=== PATIENT | male | born 1940 | race Caucasian/White ===

== ENCOUNTER → 2017-02-17 | Outpatient (REF) | payer MEDICARE, BC, OTHER | LOC: M LAB REF 13:56 | PROVIDERS: ATTEND Family Medicine | DX: N40.1 Benign prostatic hyperplasia with lower urinary tract symptoms (principal) ==

== ENCOUNTER → 2018-03-02 | Outpatient (REF) | payer MEDICARE, BC, OTHER ==
[2018-03-03 14:14] LABS: PSA TOTAL 1.1 ng/mL (0.0-4.0)
== END ==
LOC: M LAB REF 12:57
DX: Z12.5 Encounter for screening for malignant neoplasm of prostate (principal)
CPT/HCPCS: 84154

== ENCOUNTER → 2018-04-24 | Outpatient (CLI) | payer MEDICARE, BC, OTHER | LOC: M WHC 07:55 | DX: M16.12 Unilateral primary osteoarthritis, left hip (principal); M85.80 Other specified disorders of bone density and structure, unspecified site | CPT/HCPCS: 77080 ==

== ENCOUNTER → 2018-10-26 | Outpatient (REF) | payer MEDICARE, BC, OTHER ==
[2018-10-26 12:20] LABS: BASO % 0.5 % (0.0-1.0); EOS # 0.1 10^3/uL (0.0-0.50); EOS % 0.8 % (0.0-3.0); HEMATOCRIT 44.4 % (42.0-52.0); HEMOGLOBIN 14.6 g/dl (13.5-17.5); LYMPH # 1.5 10^3/uL (1.5-4.5); LYMPH % 24.9 % (24.0-44.0); MEAN CORPUSCULAR HEMOGLOBIN 32.4 pg (27.0-33.0); MEAN CORPUSCULAR HGB CONC 32.9 g/dl (32.0-36.5); MEAN CORPUSCULAR VOLUME 98.4 fl (80.0-96.0); MONO # 0.5 10^3/uL (0.0-0.8); MONO % 8.5 % (0.0-5.0); NEUTROPHILS % 65.1 % (36.0-66.0); PLATELET COUNT, AUTOMATED 256 10^3/uL (150-450); RED BLOOD COUNT 4.51 10^6/uL (4.30-6.10); WHITE BLOOD COUNT 6.1 10^3/uL (4.0-10.0)
== END ==
LOC: M LABDRAW1 11:36
PROVIDERS: ATTEND Orthopaedic Surgery
DX: M17.12 Unilateral primary osteoarthritis, left knee (principal); Z79.899 Other long term (current) drug therapy

== ENCOUNTER → 2019-03-16 | Outpatient (REF) | payer MEDICARE, BC, OTHER ==
[2019-03-18 00:06] LABS: PSA TOTAL 1.1 ng/mL (0.0-4.0)
== END ==
LOC: M LAB REF 12:31
PROVIDERS: ATTEND Family Medicine
DX: Z12.5 Encounter for screening for malignant neoplasm of prostate (principal)

== ENCOUNTER → 2020-10-23 | Outpatient (CLI) | payer MEDICARE, OTHER ==
--- NOTE | 2020-10-23 19:14 | REP ---
INDICATION: RT GROIN PAIN ? RT INGUINAL HERNIA. COMPARISON: Comparison CT study October 15, 2014.. TECHNIQUE: Bilateral inguinal canal sonography. FINDINGS: Incidental note is made of a cyst in the head of the epididymis on the right side measuring 1.6 x 1.7 x 0.9 cm.. No evidence of inguinal hernia or defect on either side. No change with Valsalva.. No other abnormal fluid collection seen.. IMPRESSION: Negative inguinal canal sonography. No evidence of hernia is seen.. <Electronically signed by Robert Felix > 10/23/20 [id number]
== END ==
LOC: M RAD 15:00
PROVIDERS: ATTEND Physician Assistant Medical
DX: R10.2 Pelvic and perineal pain (principal)

== ENCOUNTER → 2021-03-21 | Outpatient (REF) | payer MEDICARE, BC, OTHER ==
[2021-03-22 23:07] LABS: PSA TOTAL 1.2 ng/mL (0.0-4.0)
== END ==
LOC: M LAB REF 11:21
PROVIDERS: ATTEND Family Medicine
DX: Z12.5 Encounter for screening for malignant neoplasm of prostate (principal)

== ENCOUNTER → 2021-09-24 | Outpatient (REF) | payer MEDICARE, BC, OTHER | LOC: M LAB REF 11:51 | PROVIDERS: ATTEND Family Medicine | DX: R74.01 Elevation of levels of liver transaminase levels (principal) ==

== ENCOUNTER → 2022-03-01 | Outpatient (CLI) | payer MEDICARE, OTHER ==
[2022-03-01 11:42] LABS: BASO % 0.9 % (0.0-1.0); EOS # 0.1 10^3/uL (0.0-0.5); EOS % 1.1 % (0.0-3.0); HEMATOCRIT 41.4 % (42.0-52.0); LYMPH # 1.2 10^3/uL (1.5-5.0); LYMPH % 26.4 % (24.0-44.0); MEAN CORPUSCULAR HEMOGLOBIN 32.5 pg (27.0-33.0); MEAN CORPUSCULAR HGB CONC 33.8 g/dl (32.0-36.5); MEAN CORPUSCULAR VOLUME 96.1 fl (80.0-96.0); MONO # 0.4 10^3/uL (0.0-0.8); NEUTROPHILS # 2.9 10^3/uL (1.5-8.5); NEUTROPHILS % 62.6 % (36.0-66.0); PLATELET COUNT, AUTOMATED 206 10^3/uL (150-450); RED BLOOD COUNT 4.31 10^6/uL (4.30-6.10); WHITE BLOOD COUNT 4.7 10^3/uL (4.0-10.0)
[2022-03-01 12:39] LABS: ALBUMIN 3.8 GM/DL (3.2-5.2); PERCENT SATURATION 26.7 % (19.7-50.0)
== END ==
LOC: M LAB 10:33
PROVIDERS: ATTEND Orthopaedic Surgery Adult Reconstructive Orthopaedic Surgery
DX: M16.0 Bilateral primary osteoarthritis of hip (principal); M25.552 Pain in left hip

== ENCOUNTER → 2022-03-18 | Outpatient (REF) | payer MEDICARE, OTHER ==
[2022-03-18 12:26] LABS: APPEARANCE, URINE MANUAL CLEAR (CLEAR); COLOR, URINE MANUAL YELLOW (YELLOW)
[2022-03-18 12:28] LABS: PROTEIN, URINE MANUAL NEGATIVE (NEGATIVE)
[2022-03-18 12:29] LABS: BILIRUBIN, URINE MANUAL NEGATIVE (NEGATIVE); BLOOD URINE MANUAL TRACE (NEGATIVE); GLUCOSE, URINE (UA) MANUAL NEGATIVE (NEGATIVE); KETONE, URINE MANUAL 1+ mg/dL (NEGATIVE); LEUKOCYTE ESTERASE, URINE MAN NEGATIVE (NEGATIVE); NITRITE, URINE MANUAL NEGATIVE (NEGATIVE); UROBILINOGEN, URINE MANUAL NORMAL (NORMAL)
[2022-03-18 12:43] LABS: INR 1.09; PROTHROMBIN TIME 14.5 SECONDS (12.7-14.5); RBC, URINE 0-1 /hpf (0-3); WBC, URINE 0-1 /hpf (0-3)
[2022-03-18 12:44] LABS: AMORPHOUS SEDIMENT, URINE SMALL AMOUNT (NEGATIVE); BACTERIA, URINE NONE SEEN; HYALINE CAST, URINE NONE SEEN /lpf (0-1); MUCUS, URINE SMALL AMOUNT (NEGATIVE); PARTIAL THROMBOPLASTIN TIME 27.9 SECONDS (25.9-37.0); SQUAMOUS EPITHELIAL CELL URINE NONE SEEN /hpf (SMALL AMT)
== END ==
LOC: M LAB REF 11:54
PROVIDERS: ATTEND Family Medicine
DX: Z01.818 Encounter for other preprocedural examination (principal)

== ENCOUNTER 2022-09-26 12:35 | Emergency (ER) | payer MEDICARE, OTHER, BC ==
[~2022-09-26] VITALS: Ht 170.2 cm; Wt 68.6 kg
[2022-09-26 14:03] LABS: BASO % 0.5 % (0.0-1.0); EOS # 0.1 10^3/uL (0.0-0.5); EOS % 0.9 % (0.0-3.0); HEMATOCRIT 42.4 % (42.0-52.0); HEMOGLOBIN 14.2 g/dl (13.5-17.5); LYMPH # 1.3 10^3/uL (1.5-5.0); LYMPH % 23.8 % (24.0-44.0); MEAN CORPUSCULAR HEMOGLOBIN 32.1 pg (27.0-33.0); MEAN CORPUSCULAR HGB CONC 33.5 g/dl (32.0-36.5); MEAN CORPUSCULAR VOLUME 95.7 fl (80.0-96.0); MONO # 0.4 10^3/uL (0.0-0.8); MONO % 7.3 % (2.0-8.0); NEUTROPHILS # 3.8 10^3/uL (1.5-8.5); NEUTROPHILS % 67.3 % (36.0-66.0); PLATELET COUNT, AUTOMATED 211 10^3/uL (150-450); RED BLOOD COUNT 4.43 10^6/uL (4.30-6.10); WHITE BLOOD COUNT 5.6 10^3/uL (4.0-10.0)
[2022-09-26 14:17] LABS: INR 1.09; PARTIAL THROMBOPLASTIN TIME 29.5 SECONDS (24.8-34.2); PROTHROMBIN TIME 14.3 SECONDS (12.5-14.5)
[2022-09-26 14:39] LABS: CPK CREATINE PHOSPHOKINASE 54 U/L (46-171)
[2022-09-26 14:40] VITALS: BP 131/60
[2022-09-26 14:43] LABS: ALKALINE PHOSPHATASE 75 U/L (46-116); ALT/SGPT 21 U/L (7.0-40); AST/SGOT 15 U/L (<34); BILIRUBIN,DIRECT 0.3 MG/DL (<0.4); BILIRUBIN,TOTAL 0.9 MG/DL (0.3-1.2); BLOOD UREA NITROGEN 23 MG/DL (9-23); CALCIUM LEVEL 9.3 MG/DL (8.3-10.6); CARBON DIOXIDE LEVEL 28 MMOL/L (20-31); CHLORIDE LEVEL 105 MMOL/L (98-107); CK-MB VALUE MASS 1.2 NG/ML (<3.6); FREE T4 1.05 NG/DL (0.89-1.76); GLOMERULAR FILTRATION RATE > 60.0 (>42); GLUCOSE, FASTING 103 MG/DL (74-106); MB/CK RELATIVE INDEX 2.22 (< OR =4); POTASSIUM SERUM 4.7 MMOL/L (3.5-5.1); SODIUM LEVEL 139 MMOL/L (136-145); TOTAL PROTEIN 6.8 G/DL (5.7-8.2)
[2022-09-26] MEDS ORDERED: ISOVUE-370 76% 100ML VIAL As Ordered ONE (14:54)
[2022-09-26 15:27] LABS: CK-MB VALUE MASS 1.1 NG/ML (<3.6)
[2022-09-26 15:28] LABS: MB/CK RELATIVE INDEX 2.03 (< OR =4)
== END 2022-09-26 16:28 | disposition home or self-care (01) ==
LOC: M ED 12:35
DX: R07.9 Chest pain, unspecified (principal); I10 Essential (primary) hypertension; E78.5 Hyperlipidemia, unspecified
CPT/HCPCS: 36415; 71046; 71275; 80048; 80076; 82550; 82553; 84439; 84443; 84484; 85025; 85610; 85730; 93005; 93041; 94760; 99285; Q9967

== ENCOUNTER → 2022-11-08 | Outpatient (CLI) | payer MEDICARE, BC, OTHER ==
[~2022-11-08] MED LIST: PROHANCE 279.3MG/ML 15ML VIAL ONE
== END ==
LOC: M PLAIMG 12:14
PROVIDERS: ATTEND Family Medicine
DX: D37.6 Neoplasm of uncertain behavior of liver, gallbladder and bile ducts (principal); K76.89 Other specified diseases of liver
CPT/HCPCS: 74183; A9576

== ENCOUNTER 2023-05-24 13:55 | Emergency (ER) | payer MEDICARE, BC, OTHER ==
[~2023-05-24] VITALS: Ht 170.2 cm; Wt 69.5 kg
[2023-05-24 17:03] VITALS: BP 104/61; TEMP 98.4; O2SAT 97
== END 2023-05-24 17:06 | disposition home or self-care (01) ==
LOC: M ED 13:55
DX: M71.22 Synovial cyst of popliteal space [Baker], left knee (principal); R22.42 Localized swelling, mass and lump, left lower limb; E11.9 Type 2 diabetes mellitus without complications; I10 Essential (primary) hypertension; E78.5 Hyperlipidemia, unspecified; F10.10 Alcohol abuse, uncomplicated

== ENCOUNTER → 2023-09-26 | Outpatient (CLI) | payer MEDICARE, BC, OTHER ==
[2023-09-26 12:20] LABS: BASO % 0.5 % (0.0-1.0); EOS % 0.5 % (0.0-3.0); HEMATOCRIT 41.9 % (42.0-52.0); HEMOGLOBIN 13.9 g/dl (13.5-17.5); LYMPH # 1.6 10^3/uL (1.5-5.0); LYMPH % 29.5 % (24.0-44.0); MEAN CORPUSCULAR HEMOGLOBIN 32.4 pg (27.0-33.0); MEAN CORPUSCULAR HGB CONC 33.2 g/dl (32.0-36.5); MEAN CORPUSCULAR VOLUME 97.7 fl (80.0-96.0); MONO # 0.5 10^3/uL (0.0-0.8); MONO % 8.6 % (2.0-8.0); NEUTROPHILS # 3.4 10^3/uL (1.5-8.5); NEUTROPHILS % 60.7 % (36.0-66.0); PLATELET COUNT, AUTOMATED 207 10^3/uL (150-450); RED BLOOD COUNT 4.29 10^6/uL (4.30-6.10); WHITE BLOOD COUNT 5.6 10^3/uL (4.0-10.0)
[2023-09-26 12:31] LABS: INR 1.11
[2023-09-26 12:44] LABS: ALBUMIN 4.1 G/DL (3.2-5.2); ALKALINE PHOSPHATASE 70 U/L (46-116); ALT/SGPT 23 U/L (7.0-40); AST/SGOT 14 U/L (<34); BILIRUBIN,TOTAL 0.9 MG/DL (0.3-1.2); BLOOD UREA NITROGEN 24 MG/DL (9-23); CALCIUM LEVEL 9.5 MG/DL (8.3-10.6); CARBON DIOXIDE LEVEL 28 MMOL/L (20-31); CHLORIDE LEVEL 106 MMOL/L (98-107); CREATININE FOR GFR 0.92 MG/DL (0.70-1.30); GLOMERULAR FILTRATION RATE > 60.0 (>35); GLUCOSE, FASTING 97 MG/DL (74-106); IRON (FE) 61 UG/DL (65-175); PERCENT SATURATION 21.7 % (19.7-50.0); POTASSIUM SERUM 4.1 MMOL/L (3.5-5.1); SODIUM LEVEL 138 MMOL/L (136-145); TOTAL IRON BINDING CAPACITY 281 UG/DL (250-425); TOTAL PROTEIN 6.6 G/DL (5.7-8.2)
[2023-09-26 12:47] LABS: FERRITIN 120.6 NG/ML (10.5-307.3)
== END ==
LOC: M LAB 11:33
PROVIDERS: ATTEND Orthopaedic Surgery Adult Reconstructive Orthopaedic Surgery
DX: Z01.818 Encounter for other preprocedural examination (principal); M25.562 Pain in left knee; M17.12 Unilateral primary osteoarthritis, left knee

== ENCOUNTER → 2023-11-05 | Outpatient (REF) | payer MEDICARE, BC, OTHER ==
[2023-11-05 14:50] LABS: PERCENT SATURATION 30.5 % (19.7-50.0)
== END ==
LOC: M LAB REF 14:20
PROVIDERS: ATTEND Family Medicine
DX: D64.9 Anemia, unspecified (principal)

== ENCOUNTER 2023-11-12 17:01 | Emergency (ER) | payer MEDICARE, BC, OTHER ==
[~2023-11-12] VITALS: Ht 167.6 cm; Wt 75.0 kg
[2023-11-12] MEDS ORDERED: KETO10TAB (17:18)
[2023-11-12] MEDS ORDERED: FERR324T21 PO (17:18)
[2023-11-12] MEDS ORDERED: ASPI81CH33 PO (17:18)
[2023-11-12] MEDS ORDERED: HYDR-3713 (17:18)
[2023-11-12] MEDS ORDERED: ACET-683 PO (17:18)
[2023-11-12] MEDS ORDERED: TAMS1CAP17 (17:18)
[2023-11-12] MEDS ORDERED: ATOR1TAB21 (17:18)
[2023-11-12] MEDS ORDERED: CELE0.09 (17:18)
[2023-11-12] MEDS ORDERED: DORZ2SOL4 (17:18)
[2023-11-12] MEDS: NORCO, ANEXSIA 5/325MG TABLET (HYDROcodone/ACETAMINOPHEN) PO ONE (21:27)
[2023-11-12] MEDS ORDERED: PROHANCE 279.3MG/ML 15ML VIAL As Ordered ONE (21:47)
[2023-11-12 21:56] LABS: BASO % 0.4 % (0.0-1.0); EOS # 0.1 10^3/uL (0.0-0.5); EOS % 1.8 % (0.0-3.0); HEMATOCRIT 39.3 % (42.0-52.0); LYMPH # 1.5 10^3/uL (1.5-5.0); LYMPH % 22.7 % (24.0-44.0); MEAN CORPUSCULAR HEMOGLOBIN 32.4 pg (27.0-33.0); MEAN CORPUSCULAR HGB CONC 33.1 g/dl (32.0-36.5); MONO # 0.8 10^3/uL (0.0-0.8); MONO % 12.4 % (2.0-8.0); NEUTROPHILS # 4.2 10^3/uL (1.5-8.5); NEUTROPHILS % 62.4 % (36.0-66.0); PLATELET COUNT, AUTOMATED 168 10^3/uL (150-450); RED BLOOD COUNT 4.01 10^6/uL (4.30-6.10); WHITE BLOOD COUNT 6.8 10^3/uL (4.0-10.0)
[2023-11-13] MEDS: LIDOCAINE 2% 5ML JELLY UROJET TOP ONE (00:25)
[2023-11-13 00:56] VITALS: BP 137/71; TEMP 98.6; O2SAT 99
== END 2023-11-13 00:57 | disposition home or self-care (01) ==
LOC: M ED 17:01
DX: R33.9 Retention of urine, unspecified (principal); S32.030A Wedge compression fracture of third lumbar vertebra, initial encounter for closed fracture; Y92.9 Unspecified place or not applicable; Y93.9 Activity, unspecified; Y99.9 Unspecified external cause status; I10 Essential (primary) hypertension; Z79.1 Long term (current) use of non-steroidal anti-inflammatories (NSAID); Z79.899 Other long term (current) drug therapy
CPT/HCPCS: 36415; 51702; 72158; 80047; 81001; 85025; 99284; A9576

== ENCOUNTER 2023-11-25 18:36 | Inpatient (IN) | payer MEDICARE, BC, OTHER ==
[~2023-11-25] VITALS: Ht 165.1 cm; Wt 69.8 kg
[~2023-11-25 18:36] MED LIST changes: +ACET-683 PO; +ASPI81CH33 PO; +ATOR1TAB21; +CELE0.09; +DORZ2SOL4; +FERR324T21 PO; +HYDR-3713; +KETO10TAB; -PROHANCE 279.3MG/ML 15ML VIAL ONE; +TAMS1CAP17
[2023-11-25] MEDS ORDERED: XALA0.007 OP (18:51)
[2023-11-25] MEDS ORDERED: OLME20TA55 PO (18:51)
[2023-11-25] MEDS ORDERED: [UNRECOGNIZED DRUG - CODE] TP (18:51)
[2023-11-25] MEDS ORDERED: BACT800T5 PO (18:54)
[2023-11-25] MEDS: NS 500 ML IV ONE (19:15)
[2023-11-25] MEDS: ACETAMINOPHEN TAB 650MG DOSE (2X325MG) PO ONE (19:17)
[2023-11-25 19:33] LABS: BASO % 0.1 % (0.0-1.0); HEMATOCRIT 36.5 % (42.0-52.0); HEMOGLOBIN 12.3 g/dl (13.5-17.5); LYMPH # 0.7 10^3/uL (1.5-5.0); LYMPH % 3.2 % (24.0-44.0); MEAN CORPUSCULAR HGB CONC 33.7 g/dl (32.0-36.5); MEAN CORPUSCULAR VOLUME 97.9 fl (80.0-96.0); MONO % 4.5 % (2.0-8.0); NEUTROPHILS % 91.1 % (36.0-66.0); PLATELET COUNT, AUTOMATED 215 10^3/uL (150-450); RED BLOOD COUNT 3.73 10^6/uL (4.30-6.10)
[2023-11-25 19:58] LABS: ALBUMIN 3.4 G/DL (3.2-5.2); ALKALINE PHOSPHATASE 69 U/L (46-116); ALT/SGPT 21 U/L (7.0-40); AST/SGOT 14 U/L (<34); BLOOD UREA NITROGEN 25 MG/DL (9-23); CALCIUM LEVEL 8.8 MG/DL (8.3-10.6); CARBON DIOXIDE LEVEL 24 MMOL/L (20-31); CHLORIDE LEVEL 102 MMOL/L (98-107); CREATININE FOR GFR 1.05 MG/DL (0.70-1.30); GLOMERULAR FILTRATION RATE > 60.0 (>35); GLUCOSE, FASTING 171 MG/DL (74-106); POTASSIUM SERUM 4.3 MMOL/L (3.5-5.1); SODIUM LEVEL 133 MMOL/L (136-145); TOTAL PROTEIN 5.7 G/DL (5.7-8.2)
[2023-11-25] MEDS: PIPERACILLIN/TAZOBACTAM SOD 4.5 GM in D5W MINI-BAG PLUS 50 ML IV ONE (20:07)
[2023-11-25 20:10] LABS: PROCALCITONIN 0.52 ng/ml
[2023-11-25] MEDS: LATANOPROST 0.005% OPHTH SOLN 2.5 ML OU SCH (21:00)
[2023-11-25] MEDS ORDERED: ISOVUE-370 76% 100ML VIAL As Ordered ONE (21:55)
[2023-11-26] MEDS ORDERED: ACET-897 PO (01:54)
[2023-11-26] MEDS ORDERED: ASPI-615 PO (01:54)
[2023-11-26] MEDS ORDERED: CELE0.09 PO (01:54)
[2023-11-26] MEDS ORDERED: FLOM0.4C39 PO (01:54)
[2023-11-26] MEDS ORDERED: ATOR1TAB21 PO (01:54)
[2023-11-26] MEDS ORDERED: XALA0.007 OU (01:54)
[2023-11-26] MEDS ORDERED: DORZ2SOL4 OU (01:54)
[2023-11-26] MEDS ORDERED: HOME MED LIST COMPLETE! XX SCH (01:55)
[2023-11-26] MEDS: NS 1,090 ML in IV 1 EA IV ONE (02:57)
[2023-11-26] MEDS: TAMSULOSIN 0.4 MG CAP PO SCH ×2 (02:57→20:53)
[2023-11-26] MEDS: NS 1,000 ML IV SCH (02:58)
[2023-11-26] MEDS: PIPERACILLIN/TAZOBACTAM SOD 3.375 GM in D5W MINI-BAG PLUS 50 ML IV SCH (03:00)
[2023-11-26] MEDS: ACETAMINOPHEN TAB 650MG DOSE (2X325MG) PO PRN (03:19)
[2023-11-26 08:35] LABS: HEMATOCRIT 33.9 % (42.0-52.0); HEMOGLOBIN 11.5 g/dl (13.5-17.5); MEAN CORPUSCULAR HEMOGLOBIN 32.8 pg (27.0-33.0); MEAN CORPUSCULAR HGB CONC 33.9 g/dl (32.0-36.5); MEAN CORPUSCULAR VOLUME 96.6 fl (80.0-96.0); PLATELET COUNT, AUTOMATED 196 10^3/uL (150-450); RED BLOOD COUNT 3.51 10^6/uL (4.30-6.10); WHITE BLOOD COUNT 20.8 10^3/uL (4.0-10.0)
[2023-11-26] MEDS ORDERED: OLMESARTAN MEDOXOMIL 20 MG TAB (BENICAR) PO SCH (09:00)
[2023-11-26 09:09] LABS: BLOOD UREA NITROGEN 18 MG/DL (9-23); CALCIUM LEVEL 8.2 MG/DL (8.3-10.6); CARBON DIOXIDE LEVEL 24 MMOL/L (20-31); CHLORIDE LEVEL 112 MMOL/L (98-107); CREATININE FOR GFR 1.03 MG/DL (0.70-1.30); GLOMERULAR FILTRATION RATE > 60.0 (>35); GLUCOSE, FASTING 98 MG/DL (74-106); POTASSIUM SERUM 4.2 MMOL/L (3.5-5.1); SODIUM LEVEL 142 MMOL/L (136-145)
[2023-11-26] MEDS: DOCUSATE SODIUM 100MG CAPSULE PO SCH (10:44)
[2023-11-26] MEDS: DORZOLAMIDE 2% OPHTH SOLN 10 ML BTL OU SCH (10:44)
[2023-11-26] MEDS: ASPIRIN 81MG ENTERIC TABLET PO SCH (10:44)
[2023-11-26] MEDS: NS 500 ML IV ONE (10:45)
[2023-11-26] MEDS: cefTRIAXone SOD 1 GM in D5W MINI-BAG PLUS 50 ML IV SCH (15:02)
[2023-11-26] MEDS: ENOXAPARIN 40MG/0.4ML SYRINGE (J1650 PER 10MG) SC SCH (15:02)
[2023-11-26] MEDS: FINASTERIDE 5MG TAB PO SCH (16:35)
[2023-11-26 16:50] VITALS: BP 122/45; TEMP 98.8; O2SAT 100
[2023-11-26 18:00] VITALS: BP 117/57; TEMP 98.8; O2SAT 98
[2023-11-26 20:11] VITALS: BP 116/56; TEMP 99.1; O2SAT 97
[2023-11-26] MEDS: ATORVASTATIN 20 MG TAB PO SCH (20:53)
[2023-11-27 03:20] VITALS: BP 119/57; TEMP 100.6; O2SAT 96
[2023-11-27 06:00] VITALS: BP 118/57; TEMP 99.3; O2SAT 98
[2023-11-27] MEDS: IBUPROFEN 400MG TAB PO ONE (06:07)
[2023-11-27 07:46] LABS: HEMATOCRIT 35.3 % (42.0-52.0); HEMOGLOBIN 11.8 g/dl (13.5-17.5); MEAN CORPUSCULAR HEMOGLOBIN 32.3 pg (27.0-33.0); MEAN CORPUSCULAR HGB CONC 33.4 g/dl (32.0-36.5); MEAN CORPUSCULAR VOLUME 96.7 fl (80.0-96.0); PLATELET COUNT, AUTOMATED 202 10^3/uL (150-450); RED BLOOD COUNT 3.65 10^6/uL (4.30-6.10); WHITE BLOOD COUNT 14.5 10^3/uL (4.0-10.0)
[2023-11-27 08:15] LABS: BLOOD UREA NITROGEN 13 MG/DL (9-23); CALCIUM LEVEL 8.5 MG/DL (8.3-10.6); CARBON DIOXIDE LEVEL 24 MMOL/L (20-31); CHLORIDE LEVEL 112 MMOL/L (98-107); GLOMERULAR FILTRATION RATE > 60.0 (>35); GLUCOSE, FASTING 90 MG/DL (74-106); POTASSIUM SERUM 4.3 MMOL/L (3.5-5.1); SODIUM LEVEL 143 MMOL/L (136-145)
[2023-11-27] MEDS ORDERED: FINA5TAB2 PO (09:03)
[2023-11-27] MEDS ORDERED: LEVO1TAB40 PO (09:03)
[2023-11-27] MEDS ORDERED: FLOM0.4C39 PO (09:07)
[2023-11-27] MEDS: LevoFLOXacin IV 750 MG in IV 1 EA IV SCH (09:24)
[2023-11-27 10:00] VITALS: BP 114/64; TEMP 98.1; O2SAT 96
[2023-11-27] MEDS: LevoFLOXacin 750 MG TABLET PO ONE (11:18)
== END 2023-11-27 15:10 | disposition home or self-care (01) | DRG 698 ==
LOC: M ED 18:36 → M ED INP 11-26 02:01 → ENRESERV 11-26 15:31 → M MSPAV 11-26 16:50
PROVIDERS: ADMIT Preventive Medicine Undersea and Hyperbaric Medicine; ATTEND Student in an Organized Health Care Education/Training Program
DX: T83.511A Infection and inflammatory reaction due to indwelling urethral catheter, initial encounter (principal); A41.9 Sepsis, unspecified organism; N39.0 Urinary tract infection, site not specified; I10 Essential (primary) hypertension; E78.5 Hyperlipidemia, unspecified; H40.9 Unspecified glaucoma; R33.9 Retention of urine, unspecified; N40.0 Benign prostatic hyperplasia without lower urinary tract symptoms; Y84.6 Urinary catheterization as the cause of abnormal reaction of the patient, or of later complication, without mention of misadventure at the time of the procedure; H91.90 Unspecified hearing loss, unspecified ear; Z96.652 Presence of left artificial knee joint; N20.0 Calculus of kidney; Z79.82 Long term (current) use of aspirin; Z79.899 Other long term (current) drug therapy

== ENCOUNTER → 2024-01-07 | Outpatient (REF) | payer MEDICARE, BC, OTHER ==
[~2024-01-07] MED LIST changes: +ACET-897 PO; +ASPI-615 PO; +ATOR1TAB21 PO; +BACT800T5 PO; +CELE0.09 PO; +DORZ2SOL4 OU; +FINA5TAB2 PO; +FLOM0.4C39 PO; +LEVO1TAB40 PO; +OLME20TA55 PO; +XALA0.007 OP; +XALA0.007 OU; +[UNRECOGNIZED DRUG - CODE] TP
== END ==
LOC: M LAB REF 11:28
PROVIDERS: ATTEND Family Medicine
DX: D64.9 Anemia, unspecified (principal)

== ENCOUNTER → 2024-04-15 | Outpatient (CLI) | payer MEDICARE, BC, OTHER | LOC: M RAD 12:18 | PROVIDERS: ATTEND Physician Assistant Medical | DX: K40.20 Bilateral inguinal hernia, without obstruction or gangrene, not specified as recurrent (principal); R10.32 Left lower quadrant pain; M25.552 Pain in left hip ==

== ENCOUNTER 2024-05-08 08:03 | Emergency (ER) | payer MEDICARE, BC, OTHER ==
[~2024-05-08] VITALS: Ht 170.2 cm; Wt 66.9 kg
[2024-05-08] MEDS: IBUPROFEN 600MG TAB PO ONE (09:14)
[2024-05-08] MEDS ORDERED: ISOVUE-370 76% 100ML VIAL As Ordered ONE (10:36)
[2024-05-08 10:42] LABS: BASO % 0.4 % (0.0-1.0); EOS % 0.2 % (0.0-3.0); HEMATOCRIT 43.2 % (42.0-52.0); HEMOGLOBIN 14.5 g/dl (13.5-17.5); LYMPH # 0.8 10^3/uL (1.5-5.0); LYMPH % 17.1 % (24.0-44.0); MEAN CORPUSCULAR HEMOGLOBIN 31.9 pg (27.0-33.0); MEAN CORPUSCULAR HGB CONC 33.6 g/dl (32.0-36.5); MEAN CORPUSCULAR VOLUME 94.9 fl (80.0-96.0); MONO # 0.4 10^3/uL (0.0-0.8); NEUTROPHILS # 3.4 10^3/uL (1.5-8.5); NEUTROPHILS % 74.3 % (36.0-66.0); PLATELET COUNT, AUTOMATED 182 10^3/uL (150-450); RED BLOOD COUNT 4.55 10^6/uL (4.30-6.10); WHITE BLOOD COUNT 4.6 10^3/uL (4.0-10.0)
[2024-05-08 11:41] LABS: ALBUMIN 3.8 G/DL (3.2-5.2); BILIRUBIN,DIRECT 0.3 MG/DL (<0.4); BILIRUBIN,TOTAL 0.7 MG/DL (0.3-1.2); TOTAL PROTEIN 6.5 G/DL (5.7-8.2)
[2024-05-08 12:08] VITALS: BP 142/78; TEMP 97.5; O2SAT 97
== END 2024-05-08 12:14 | disposition home or self-care (01) ==
LOC: M ED 08:03
DX: K40.20 Bilateral inguinal hernia, without obstruction or gangrene, not specified as recurrent (principal); I10 Essential (primary) hypertension; F10.10 Alcohol abuse, uncomplicated; Z87.442 Personal history of urinary calculi; Z79.02 Long term (current) use of antithrombotics/antiplatelets; Z79.2 Long term (current) use of antibiotics; Z79.899 Other long term (current) drug therapy; Z96.641 Presence of right artificial hip joint
CPT/HCPCS: 36415; 74177; 76857; 80047; 80076; 83605; 83690; 85025; 99284; Q9967

== ENCOUNTER 2024-06-01 07:37 | Day surgery (SDC) | payer MEDICARE, BC, OTHER ==
[~2024-06-01] VITALS: Ht 170.2 cm; Wt 64.8 kg
[~2024-06-01 07:37] MED LIST changes: +LIDOCAINE 2% 100MG/5ML SDV (FOR ANES.) As Ordered ONE; +ONDANSETRON 4MG 2ML VIAL As Ordered ONE; +ROCURONIUM BROMIDE 50MG/5ML VIAL As Ordered ONE; +dexmedeTOMIDine (4MCG/ML)200MCG/50ML BTL (PRECEDEX) As Ordered ONE; +propofoL 200 MG/20 ML VIAL As Ordered ONE
[2024-06-01] MEDS ORDERED: fentaNYL 100 MCG/2 ML INJECTION As Ordered ONE (08:30)
[2024-06-01] MEDS: NS 1,000 ML IV SCH (08:55)
[2024-06-01] MEDS: ceFAZolin SOD 2 GM in IV 1 EA IV ONE (10:04)
[2024-06-01] MEDS ORDERED: SUGAMMADEX SODIUM 500 MG/5 ML VIAL (BRIDION) As Ordered ONE (11:00)
[2024-06-01] MEDS ORDERED: HYDROMORPHONE HCL 0.5 MG/ 0.5 ML SYRINGE IV PRN (11:55)
[2024-06-01] MEDS ORDERED: ONDANSETRON 4MG 2ML VIAL IV PRN (11:55)
[2024-06-01] MEDS ORDERED: NS 1,000 ML IV SCH (11:55)
[2024-06-01] MEDS ORDERED: fentaNYL 100 MCG/2 ML INJECTION IV PRN (11:55)
[2024-06-01] MEDS: oxyCODONE 5MG TAB PO PRN (12:07)
[2024-06-01] MEDS ORDERED: traMADol 50 MG TAB PO PRN (13:20)
[2024-06-01 13:37] VITALS: BP 129/68; TEMP 98; O2SAT 98
== END 2024-06-01 14:04 | disposition home or self-care (01) ==
LOC: M SDC 07:37
PROVIDERS: ATTEND Surgery
DX: K40.20 Bilateral inguinal hernia, without obstruction or gangrene, not specified as recurrent (principal); E78.5 Hyperlipidemia, unspecified; N40.0 Benign prostatic hyperplasia without lower urinary tract symptoms; R00.1 Bradycardia, unspecified; Z79.899 Other long term (current) drug therapy
CPT/HCPCS: 49650; C1781; J0665; J0690; J1100; J2405; J3010; S2900